=== PATIENT | female | born 1980 | race African-American/Black ===

== ENCOUNTER 2017-02-27 09:17 | Emergency (ER) | payer OTHER ==
[~2017-02-27] VITALS: Ht 170.2 cm; Wt 120.0 kg
[2017-02-27 10:14] LABS: ALBUMIN 3.8 g/dL (3.2-5.0); ALKALINE PHOSPHATASE 93 u/l (38-126); AMYLASE 54 u/l (30-110); ANION GAP 14 (6-22 (CALC)); BILIRUBIN, TOTAL 0.4 mg/dL (0.0-1.4); BUN 11 mg/dL (7-17); BUN/CREATININE RATIO 16 (12-20 (CALC)); CALCIUM 9.1 mg/dL (8.4-10.2); CARBON DIOXIDE 24 mmol/l (22-30); CHLORIDE 106 mmol/l (95-108); CREATININE 0.7 mg/dL (0.5-1.0); GFR > 60 ML/MIN (>=60 (CALC)); GFR FOR AFR.AMER. > 60 ML/MIN (>=60 (CALC)); GLUCOSE 90 mg/dL (65-105); LIPASE 61 u/l (23-300); POTASSIUM 4.3 mmol/l (3.5-5.1); SGOT/AST 21 u/l (14-36); SGPT/ALT 32 u/l (9-52); SODIUM 140 mmol/l (137-146); TOTAL PROTEIN 7.1 g/dL (6.3-8.2)
[2017-02-27 10:17] LABS: HEMATOCRIT 33.6 % (37.0-47.0); HEMOGLOBIN 10.7 g/dl (12.0-16.0); IMMATURE GRANULOCYTES 0.4 % (0.0-1.0); MEAN CELL VOLUME 83.6 fL CALC (80.0-100.0); MEAN CORPUSCULAR HGB 26.6 pG CALC (26.0-32.0); MEAN CORPUSCULAR HGB CONC 31.8 g/L CALC (32.0-36.0); NEUT# 4.52 thou/uL (2.00-7.15); RED BLOOD COUNT 4.02 mill/uL (4.20-5.60); RED CELL DISTRI WIDTH 15.9 % (11.5-15.5)
[2017-02-27 10:26] LABS: URINE BILIRUBIN - DIPSTICK NEGATIVE (NEGATIVE); URINE BLOOD DIPSTICK LARGE (NEGATIVE); URINE GLUCOSE - DIPSTICK NEGATIVE (NEGATIVE); URINE KETONE NEGATIVE (NEGATIVE); URINE LEUK ESTERASE NEGATIVE (NEGATIVE); URINE NITRITE - DIPSTICK NEGATIVE (Negative); URINE PROTEIN - DIPSTICK 30 mg/dL (NEG-TRACE); URINE UROBILINOGEN - DIPSTICK 0.2 E.U./dL (0.2)
[2017-02-27 10:27] LABS: URINE CLARITY BLOODY; URINE COLOR RED; URINE RBC TNTC RBC/hpf (0-5)
[2017-02-27] MEDS ORDERED: PRENATAL MULTI1 CAP PO (14:13)
[2017-02-27 14:28] VITALS: BP 158/84
== END 2017-02-27 14:30 | disposition home or self-care (01) | DRG 998 ==
LOC: ED 09:17
PROVIDERS: Emergency Medicine
DX: O26.899 Other specified pregnancy related conditions, unspecified trimester (principal); R10.2 Pelvic and perineal pain

== ENCOUNTER 2017-03-02 09:42 | Emergency (ER) | payer OTHER ==
[~2017-03-02] VITALS: Ht 170.2 cm; Wt 115.0 kg
[~2017-03-02 09:42] MED LIST: PRENATAL MULTI1 CAP PO
[2017-03-02 10:58] VITALS: BP 136/89
== END 2017-03-02 11:03 | disposition home or self-care (01) | DRG 998 ==
LOC: ED 09:42
DX: O26.859 Spotting complicating pregnancy, unspecified trimester (principal)
CPT/HCPCS: J2788

== ENCOUNTER 2017-03-05 06:53 | Emergency (ER) | payer OTHER ==
[~2017-03-05] VITALS: Ht 170.2 cm; Wt 120.9 kg
[2017-03-05 07:56] VITALS: BP 130/89
== END 2017-03-05 08:03 | disposition home or self-care (01) | DRG 779 ==
LOC: ED 06:53
DX: O03.9 Complete or unspecified spontaneous abortion without complication (principal)

== ENCOUNTER 2017-09-18 16:39 | Emergency (ER) | payer BC ==
[~2017-09-18] VITALS: Ht 170.2 cm; Wt 100.0 kg
[2017-09-18] MEDS ORDERED: ZPAK PO (17:09)
[2017-09-18] MEDS ORDERED: ZOFRAN4 M1 PO (17:09)
[2017-09-18 17:24] VITALS: BP 150/78
[2017-09-18] MEDS ORDERED: PROAIR HFA108 MCG/AC PO (17:30)
== END 2017-09-18 17:37 | disposition home or self-care (01) | DRG 153 ==
LOC: ED 16:39
DX: J06.9 Acute upper respiratory infection, unspecified (principal)

== ENCOUNTER 2018-01-12 18:57 | Emergency (ER) | payer SELFPAY ==
[~2018-01-12] VITALS: Ht 170.2 cm; Wt 104.5 kg
[~2018-01-12 18:57] MED LIST changes: +PROAIR HFA108 MCG/AC PO; +ZOFRAN4 M1 PO; +ZPAK PO
[2018-01-12] MEDS ORDERED: IBUPROFEN600 MG PO (21:10)
[2018-01-12 21:13] VITALS: BP 140/93
== END 2018-01-12 21:28 | disposition home or self-care (01) | DRG 552 ==
LOC: ED 18:57
DX: M54.2 Cervicalgia (principal); Y04.8XXA Assault by other bodily force, initial encounter; Y92.009 Unspecified place in unspecified non-institutional (private) residence as the place of occurrence of the external cause

== ENCOUNTER 2018-02-04 12:49 | Emergency (ER) | payer SELFPAY ==
[~2018-02-04] VITALS: Ht 170.2 cm; Wt 127.0 kg
[~2018-02-04 12:49] MED LIST changes: +IBUPROFEN600 MG PO
[2018-02-04] MEDS ORDERED: IBUPROFEN600 MG PO (13:40)
[2018-02-04 13:42] VITALS: BP 138/85
== END 2018-02-04 13:45 | disposition home or self-care (01) | DRG 605 ==
LOC: ED 12:49
PROC: 0HQDXZZ Repair Right Lower Arm Skin, External Approach (ICD-10-PCS; principal; 2018-02-04)
DX: S51.811A Laceration without foreign body of right forearm, initial encounter (principal); S61.411A Laceration without foreign body of right hand, initial encounter; S50.811A Abrasion of right forearm, initial encounter; W01.110A Fall on same level from slipping, tripping and stumbling with subsequent striking against sharp glass, initial encounter; Y93.E9 Activity, other interior property and clothing maintenance; Y92.008 Other place in unspecified non-institutional (private) residence as the place of occurrence of the external cause

== ENCOUNTER 2018-05-01 09:00 | Emergency (ER) | payer SELFPAY ==
[~2018-05-01] VITALS: Ht 170.2 cm; Wt 127.0 kg
[2018-05-01 10:09] LABS: ALBUMIN 3.7 g/dL (3.2-5.0); ALKALINE PHOSPHATASE 98 u/l (38-126); ANION GAP 13 (6-22 (CALC)); BILIRUBIN, TOTAL 0.3 mg/dL (0.0-1.4); BUN 16 mg/dL (7-17); BUN/CREATININE RATIO 24 (12-20 (CALC)); CARBON DIOXIDE 26 mmol/l (22-30); CHLORIDE 109 mmol/l (95-108); CPK 69 u/l (30-165); CREATININE 0.7 mg/dL (0.5-1.0); GFR > 60 ML/MIN (>=60 (CALC)); GFR FOR AFR.AMER. > 60 ML/MIN (>=60 (CALC)); POTASSIUM 4.3 mmol/l (3.5-5.1); SGOT/AST 28 u/l (14-36); SGPT/ALT 39 u/l (9-52); SODIUM 143 mmol/l (137-146); TOTAL PROTEIN 7.3 g/dL (6.3-8.2)
[2018-05-01 10:10] LABS: HEMATOCRIT 35.6 % (37.0-47.0); HEMOGLOBIN 11.4 g/dl (12.0-16.0); IMMATURE GRANULOCYTES 0.3 % (0.0-5.0); MEAN CELL VOLUME 87.5 fL CALC (80.0-100.0); NEUT# 4.35 thou/uL (2.00-7.15); RED BLOOD COUNT 4.07 mill/uL (4.20-5.60); RED CELL DISTRI WIDTH 15.4 % (11.5-15.5)
[2018-05-01 10:13] LABS: URINE BILIRUBIN - DIPSTICK NEGATIVE (NEGATIVE); URINE BLOOD DIPSTICK LARGE (NEGATIVE); URINE COLOR YELLOW; URINE GLUCOSE - DIPSTICK NEGATIVE (NEGATIVE); URINE KETONE NEGATIVE (NEGATIVE); URINE LEUK ESTERASE NEGATIVE (NEGATIVE); URINE NITRITE - DIPSTICK NEGATIVE (Negative); URINE PH 5.5 (4.5-8.0); URINE PROTEIN - DIPSTICK NEGATIVE (NEG-TRACE); URINE SPECIFIC GRAVITY 1.025; URINE UROBILINOGEN - DIPSTICK 0.2 E.U./dL (0.2)
[2018-05-01 10:22] LABS: MYOGLOBIN 24 ng/mL (0 - 62)
[2018-05-01 10:32] LABS: URINE CLARITY CLEAR; URINE RBC 25-50 RBC/hpf (0-5)
[2018-05-01 10:40] LABS: TSH, 3RD GENERATION 2.88 uIU/mL (0.47 - 4.68)
[2018-05-01] MEDS ORDERED: DYAZIDE1 CAP PO (10:52)
[2018-05-01 10:55] VITALS: BP 142/77
== END 2018-05-01 11:05 | disposition home or self-care (01) | DRG 305 ==
LOC: ED 09:00
PROVIDERS: Family Medicine
DX: I10 Essential (primary) hypertension (principal); R07.89 Other chest pain; M79.1 Myalgia; M25.50 Pain in unspecified joint

== ENCOUNTER 2020-05-16 19:14 | Emergency (ER) | payer OTHER ==
[~2020-05-16] VITALS: Ht 170.2 cm; Wt 100.0 kg
[~2020-05-16 19:14] MED LIST changes: +DYAZIDE1 CAP PO; +FERR SULFATE325 MG PO
[2020-05-16 20:19] LABS: HEMATOCRIT 33.1 % (37.0-47.0); HEMOGLOBIN 10.1 g/dl (12.0-16.0); IMMATURE GRANULOCYTES 0.3 % (0.0-5.0); MEAN CELL VOLUME 74.4 fL CALC (80.0-100.0); MEAN CORPUSCULAR HGB 22.7 pG CALC (26.0-32.0); MEAN CORPUSCULAR HGB CONC 30.5 g/dL CAL (32.0-36.0); NEUT# 4.99 thou/uL (2.00-7.15); RED BLOOD COUNT 4.45 mill/uL (4.20-5.60); RED CELL DISTRI WIDTH 18.6 % (11.5-15.5)
[2020-05-16 20:40] LABS: ALBUMIN 3.6 g/dL (3.2-5.0); ALKALINE PHOSPHATASE 100 u/l (38-126); ANION GAP 10 (6-22 (CALC)); BILIRUBIN, TOTAL 0.3 mg/dL (0.0-1.4); BUN 13 mg/dL (7-17); BUN/CREATININE RATIO 17 (12-20 (CALC)); CARBON DIOXIDE 25 mmol/l (22-30); CHLORIDE 107 mmol/l (95-108); CREATININE 0.8 mg/dL (0.5-1.0); ETHYL ALCOHOL 0 mg/dl (0-30); GFR > 60 ML/MIN (>=60 (CALC)); GFR FOR AFR.AMER. > 60 ML/MIN (>=60 (CALC)); SGOT/AST 20 u/l (14-36); SODIUM 139 mmol/l (137-146); TOTAL PROTEIN 6.9 g/dL (6.3-8.2)
[2020-05-16 20:51] LABS: MYOGLOBIN 15 ng/mL (0 - 62)
[2020-05-16 21:24] LABS: URINE BILIRUBIN - DIPSTICK NEGATIVE (NEGATIVE); URINE BLOOD DIPSTICK NEGATIVE (NEGATIVE); URINE COLOR YELLOW; URINE GLUCOSE - DIPSTICK NEGATIVE (NEGATIVE); URINE KETONE NEGATIVE (NEGATIVE); URINE LEUK ESTERASE NEGATIVE (NEGATIVE); URINE NITRITE - DIPSTICK NEGATIVE (Negative); URINE PROTEIN - DIPSTICK NEGATIVE (NEG-TRACE)
[2020-05-16 22:15] VITALS: BP 135/75
== END 2020-05-16 22:15 | disposition home or self-care (01) | DRG 312 ==
LOC: ED 19:14
PROVIDERS: Emergency Medicine
DX: R55 Syncope and collapse (principal); R51.9 Headache, unspecified

== ENCOUNTER 2020-09-29 21:29 | Emergency (ER) | payer BC ==
[~2020-09-29] VITALS: Ht 170.2 cm; Wt 113.0 kg
[2020-09-29 22:29] LABS: URINE BILIRUBIN - DIPSTICK NEGATIVE (NEGATIVE); URINE BLOOD DIPSTICK LARGE (NEGATIVE); URINE COLOR YELLOW; URINE GLUCOSE - DIPSTICK NEGATIVE (NEGATIVE); URINE KETONE NEGATIVE (NEGATIVE); URINE LEUK ESTERASE NEGATIVE (NEGATIVE); URINE NITRITE - DIPSTICK NEGATIVE (Negative); URINE PH 5.5 (4.5-8.0); URINE PROTEIN - DIPSTICK NEGATIVE (NEG-TRACE); URINE SPECIFIC GRAVITY >=1.030; URINE UROBILINOGEN - DIPSTICK 0.2 E.U./dL (0.2)
[2020-09-29 22:41] LABS: URINE SQUAMOUS EPITHELIAL CELL FEW EPI/hpf (0-FEW)
[2020-09-29] MEDS ORDERED: TAM75CAP PO (23:11)
[2020-09-29] MEDS ORDERED: VENTOLIN HFA IN (23:11)
[2020-09-29] MEDS ORDERED: DECADRON2 MG PO (23:11)
[2020-09-29] MEDS ORDERED: ZPAK PO (23:11)
[2020-09-29 23:20] VITALS: BP 135/76
[2020-09-30] MEDS ORDERED: TAM75CAP PO (13:05)
[2020-09-30] MEDS ORDERED: DECADRON2 MG PO (13:05)
[2020-09-30] MEDS ORDERED: ZPAK PO (13:05)
[2020-09-30] MEDS ORDERED: VENTOLIN HFA IN (13:05)
== END 2020-09-29 23:23 | disposition home or self-care (01) | DRG 179 ==
LOC: ED 21:29
DX: U07.1 COVID-19 (principal); J10.1 Influenza due to other identified influenza virus with other respiratory manifestations

== ENCOUNTER 2020-10-05 10:55 | Emergency (ER) | payer BC ==
[~2020-10-05] VITALS: Ht 170.2 cm; Wt 113.6 kg
[~2020-10-05 10:55] MED LIST changes: +DECADRON2 MG PO; +TAM75CAP PO; +VENTOLIN HFA IN
[2020-10-05 12:26] LABS: HEMATOCRIT 36.3 % (37.0-47.0); HEMOGLOBIN 11.2 g/dl (12.0-16.0); IMMATURE GRANULOCYTES 0.4 % (0.0-5.0); MEAN CORPUSCULAR HGB 25.7 pG CALC (26.0-32.0); MEAN CORPUSCULAR HGB CONC 30.9 g/dL CAL (32.0-36.0); NEUT# 3.65 thou/uL (2.00-7.15); RED BLOOD COUNT 4.35 mill/uL (4.20-5.60); RED CELL DISTRI WIDTH 15.3 % (11.5-15.5)
[2020-10-05 12:46] LABS: ALBUMIN 3.5 g/dL (3.2-5.0); ALKALINE PHOSPHATASE 74 u/l (38-126); BUN 15 mg/dL (7-17); BUN/CREATININE RATIO 25 (12-20 (CALC)); CARBON DIOXIDE 26 mmol/l (22-30); CHLORIDE 103 mmol/l (95-108); CREATININE 0.6 mg/dL (0.5-1.0); GFR > 60 ML/MIN (>=60 (CALC)); GFR FOR AFR.AMER. > 60 ML/MIN (>=60 (CALC)); SGOT/AST 27 u/l (14-36); SODIUM 138 mmol/l (137-146); TOTAL PROTEIN 6.8 g/dL (6.3-8.2)
[2020-10-05 12:49] LABS: ANION GAP 13 (6-22 (CALC)); BILIRUBIN, TOTAL 0.6 mg/dL (0.0-1.4); POTASSIUM 3.7 mmol/l (3.5-5.1)
[2020-10-05 12:50] LABS: MEAN CELL VOLUME 83.4 fL CALC (80.0-100.0)
[2020-10-05 13:02] LABS: BETA-HCG, QUANT(RESULT NUMBER) <2 mIU/mL
[2020-10-05] MEDS ORDERED: TRAMADOL HYDROC50 MG PO (13:29)
[2020-10-05 13:48] VITALS: BP 166/74
== END 2020-10-05 14:25 | disposition home or self-care (01) | DRG 761 ==
LOC: ED 10:55
PROVIDERS: Family Medicine
DX: N93.9 Abnormal uterine and vaginal bleeding, unspecified (principal)

== ENCOUNTER 2020-10-20 11:24 | Emergency (ER) | payer BC ==
[~2020-10-20] VITALS: Ht 170.2 cm; Wt 113.0 kg
[~2020-10-20 11:24] MED LIST changes: +TRAMADOL HYDROC50 MG PO
[2020-10-20] MEDS ORDERED: TAM75CAP PO (13:46)
[2020-10-20 14:28] VITALS: BP 126/76
== END 2020-10-20 14:28 | disposition home or self-care (01) | DRG 179 ==
LOC: ED 11:24
DX: U07.1 COVID-19 (principal); J10.1 Influenza due to other identified influenza virus with other respiratory manifestations

== ENCOUNTER 2020-11-24 09:21 | Emergency (ER) | payer BC ==
[2020-11-24 09:54] LABS: HEMATOCRIT 36.3 % (37.0-47.0); HEMOGLOBIN 11.3 g/dl (12.0-16.0); IMMATURE GRANULOCYTES 0.2 % (0.0-5.0); MEAN CELL VOLUME 85.2 fL CALC (80.0-100.0); MEAN CORPUSCULAR HGB 26.5 pG CALC (26.0-32.0); MEAN CORPUSCULAR HGB CONC 31.1 g/dL CAL (32.0-36.0); NEUT# 4.01 thou/uL (2.00-7.15); RED BLOOD COUNT 4.26 mill/uL (4.20-5.60); RED CELL DISTRI WIDTH 16.6 % (11.5-15.5)
[2020-11-24 10:05] LABS: ALBUMIN 4.2 g/dL (3.2-5.0); ALKALINE PHOSPHATASE 94 u/l (38-126); ANION GAP 10 (6-22 (CALC)); BILIRUBIN, TOTAL 0.6 mg/dL (0.0-1.4); BUN 14 mg/dL (7-17); BUN/CREATININE RATIO 19 (12-20 (CALC)); CARBON DIOXIDE 27 mmol/l (22-30); CHLORIDE 103 mmol/l (95-108); CREATININE 0.8 mg/dL (0.5-1.0); GFR > 60 ML/MIN (>=60 (CALC)); GFR FOR AFR.AMER. > 60 ML/MIN (>=60 (CALC)); POTASSIUM 4.2 mmol/l (3.5-5.1); SGOT/AST 27 u/l (14-36); SODIUM 137 mmol/l (137-146); TOTAL PROTEIN 8.1 g/dL (6.3-8.2)
[2020-11-24] MEDS ORDERED: ZOFRAN4 MG/TAB PO (10:46)
[2020-11-24] MEDS ORDERED: DICYCLOMINE HCL10 MG PO ×2 (10:46→12:16)
[2020-11-24 10:50] LABS: URINE BILIRUBIN - DIPSTICK NEGATIVE (NEGATIVE); URINE BLOOD DIPSTICK NEGATIVE (NEGATIVE); URINE COLOR YELLOW; URINE GLUCOSE - DIPSTICK NEGATIVE (NEGATIVE); URINE KETONE NEGATIVE (NEGATIVE); URINE LEUK ESTERASE NEGATIVE (NEGATIVE); URINE NITRITE - DIPSTICK NEGATIVE (Negative); URINE PROTEIN - DIPSTICK NEGATIVE (NEG-TRACE); URINE SPECIFIC GRAVITY 1.025; URINE UROBILINOGEN - DIPSTICK 0.2 E.U./dL (0.2)
[2020-11-24 12:35] VITALS: BP 161/64
== END 2020-11-24 12:48 | disposition home or self-care (01) | DRG 312 ==
LOC: ED 09:21
PROVIDERS: Emergency Medicine
DX: R55 Syncope and collapse (principal); E86.0 Dehydration; R11.2 Nausea with vomiting, unspecified; R19.7 Diarrhea, unspecified

== ENCOUNTER 2020-12-17 11:16 | Emergency (ER) | payer BC ==
[~2020-12-17 11:16] MED LIST changes: +DICYCLOMINE HCL10 MG PO; +ZOFRAN4 MG/TAB PO
[2020-12-17 12:46] VITALS: BP 128/77
== END 2020-12-17 12:46 | disposition home or self-care (01) | DRG 563 ==
LOC: ED 11:16
DX: S63.501A Unspecified sprain of right wrist, initial encounter (principal); W18.2XXA Fall in (into) shower or empty bathtub, initial encounter; Y93.E1 Activity, personal bathing and showering; Y92.002 Bathroom of unspecified non-institutional (private) residence as the place of occurrence of the external cause

== ENCOUNTER 2021-03-06 09:57 | Emergency (ER) | payer OTHER, BC ==
[~2021-03-06] VITALS: Ht 170.2 cm; Wt 114.0 kg
[2021-03-06 14:21] VITALS: BP 146/67
== END 2021-03-06 16:00 | disposition home or self-care (01) | DRG 999 ==
LOC: ED 09:57
DX: S00.03XA Contusion of scalp, initial encounter (principal); S06.0X9A Concussion with loss of consciousness of unspecified duration, initial encounter; S80.02XA Contusion of left knee, initial encounter; S80.01XA Contusion of right knee, initial encounter; V48.5XXA Car driver injured in noncollision transport accident in traffic accident, initial encounter

== ENCOUNTER 2022-03-22 18:22 | Observation (INO) | payer OTHER ==
[~2022-03-22] VITALS: Ht 170.2 cm; Wt 114.0 kg
[2022-03-22] VITALS (7 sets, daily range): BP systolic 153–180; BP diastolic 79–93
--- NOTE | 2022-03-22 18:24 | NUR ---
PT TO ROOM WITH STEADY GAIT
[2022-03-22 18:49] LABS: IMMATURE GRANULOCYTES 0.1 % (0.0-5.0); MEAN CORPUSCULAR HGB 23.9 pG CALC (26.0-32.0); MEAN CORPUSCULAR HGB CONC 30.3 g/dL CAL (32.0-36.0); NEUT# 7.16 thou/uL (2.00-7.15); RED BLOOD COUNT 4.19 mill/uL (4.20-5.60); RED CELL DISTRI WIDTH 19.1 % (11.5-15.5)
--- NOTE | 2022-03-22 18:50 | NUR ---
MEDICATED PATIENT. SHE COMMUNICATED THAT SHE WOULD LIKE TO DECLINE THE CHEST X RAY. NOTIFIED MD. PATIENT DECLINES FURTHER NEEDS AT THIS TIME.
[2022-03-22 18:51] LABS: MEAN CELL VOLUME 78.8 fL CALC (80.0-100.0)
--- NOTE | 2022-03-22 19:00 | NUR ---
ASSUMED CARE OF PT.
[2022-03-22 19:06] LABS: PROTHROMBIN TIME 9.9 SECONDS (9.0-12.5)
[2022-03-22 19:07] LABS: ALBUMIN 3.7 g/dL (3.2-5.0); ALKALINE PHOSPHATASE 100 u/l (38-126); ANION GAP 10 (6-22 (CALC)); BUN 16 mg/dL (7-17); BUN/CREATININE RATIO 25 (12-20 (CALC)); CARBON DIOXIDE 25 mmol/l (22-30); CHLORIDE 107 mmol/l (95-108); CREATININE 0.6 mg/dL (0.5-1.0); GFR FOR AFR.AMER. > 60 ML/MIN (>=60 (CALC)); GFR OTHER RACES > 60 ML/MIN (>=60 (CALC)); SGOT/AST 22 u/l (14-36); SODIUM 139 mmol/l (137-146); TOTAL PROTEIN 7.4 g/dL (6.3-8.2)
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
[2022-03-22 19:16] LABS: BILIRUBIN, TOTAL 0.3 mg/dL (0.0-1.4)
[2022-03-22 19:18] LABS: MYOGLOBIN 19 ng/mL (0 - 62)
--- NOTE | 2022-03-22 20:15 | NUR ---
Reassessment of patient completed. No distress noted. PT. TO BE ADMITTED FOR CHEST PAIN
--- NOTE | 2022-03-22 20:30 | NUR ---
REPORT TO BIMAL VARGAS TO ASSUME CARE.
--- NOTE | 2022-03-22 20:35 | NUR ---
JOSE RAFAEL REPORT RECEIVED IN ED ROOM FROM Fausto FISCHER RN.
--- NOTE | 2022-03-22 20:55 | NUR ---
PATIENT ASSESMENT COMPLETED AT THIS TIME. ALERT AND ORIENTED X3. NORMAL HEART SOUNDS, CLEAR LUNG SOUNDS BILATERALY. PER PATIENT REPORT LAST BOWEL MOVEMENT WAS TODAY 03/22. ACTIVE BOWEL SOUNDS THROUGHOUT. PLAN OF CARE REVIEWED WITH PATIIENT. ORIENTED TO CALL SYSTEM. CALL LIGHT AND BEDSIDE TABLE WTIHIN REACH.
--- NOTE | 2022-03-22 20:55 | NUR ---
PATIENT TRANSPORTED UP TO FLOOR BY WRITTER. WRITTER TO ASSUME PATIENT CARE.
--- NOTE | 2022-03-23 | NUR ---
PATIENT RESTING COMOFRTABLY. SISTER DRPPED OFF HEAT READER FOR PATINET. HEAT READER PROVIDED TO PATIENT. CALL LIGHT AND BEDSIDE TABLE REMAIN WITHIN REACH.
[2022-03-23 00:01] VITALS: BP 146/76
--- NOTE | 2022-03-23 03:30 | NUR ---
PRODUCTION SUPPORT ANALYST Aleida ESPINOZA IN TO DRAW PATIENT LABS AT THIS TIME.
[2022-03-23 03:36] LABS: HEMATOCRIT 29.7 % (37.0-47.0); HEMOGLOBIN 9.2 g/dl (12.0-16.0); IMMATURE GRANULOCYTES 0.1 % (0.0-5.0); MEAN CELL VOLUME 76.5 fL CALC (80.0-100.0); MEAN CORPUSCULAR HGB 23.7 pG CALC (26.0-32.0); NEUT# 5.52 thou/uL (2.00-7.15); RED BLOOD COUNT 3.88 mill/uL (4.20-5.60)
[2022-03-23 03:49] LABS: ALKALINE PHOSPHATASE 85 u/l (38-126); ANION GAP 9 (6-22 (CALC)); BILIRUBIN, TOTAL 0.2 mg/dL (0.0-1.4); BUN 11 mg/dL (7-17); BUN/CREATININE RATIO 18 (12-20 (CALC)); CARBON DIOXIDE 28 mmol/l (22-30); CHLORIDE 107 mmol/l (95-108); CREATININE 0.6 mg/dL (0.5-1.0); GFR FOR AFR.AMER. > 60 ML/MIN (>=60 (CALC)); GFR OTHER RACES > 60 ML/MIN (>=60 (CALC)); MAGNESIUM 1.9 mg/dL (1.6-2.3); SGOT/AST 15 u/l (14-36); SODIUM 141 mmol/l (137-146); TOTAL PROTEIN 6.1 g/dL (6.3-8.2)
[2022-03-23 04:08] VITALS: BP 141/76
--- NOTE | 2022-03-23 05:03 | NUR ---
PATIENT MEDICATED WITH TYLENOL FOR HEADAHCE 11/20.
--- NOTE | 2022-03-23 06:35 | NUR ---
RECEIVED REPORT FROM BIMAL HE.
[2022-03-23 06:53] VITALS: BP 133/66
--- NOTE | 2022-03-23 08:10 | NUR ---
PT SITTING ON BED: A&OX3. EVEN AND UNLABORED RESPIRATIONS; CLEAR LUNG SOUNDS UPON AUSCULTATION. TELEMETRY IN PLACE WITH LAST READING SR-70. IV SITE HEALTHY AND PATENT. ACTIVE BOWEL SOUNDS X4 QUADRANTS. NO DISTRESS NOTED. PT DENIES PAIN AT THE TIME. SAFETY PRECAUTIONS IN PLACE WITH CALL LIGHT IN REACH.
[2022-03-23 11:02] VITALS: BP 140/64
[2022-03-23] MEDS ORDERED: ASPIRIN81 MG PO (11:26)
--- NOTE | 2022-03-23 11:59 | NUR ---
PT EDUCATED ON DC INSTRUCTIONS; PT SHOWED UNDERSTANDING. IV REMOVED: #20G RIGHT AC, CATHETER INTACT UPON REMOVAL, PT TOLERATED WELL. TELEMETRY BOX REMOVED, ER NOTIFIED OF SAME.
--- NOTE | 2022-03-23 12:26 | NUR ---
PT LEFT @ 1227. PT DECIDED TO WALK. Discharge instructions given. Patient verbalizes understanding of same. Discharged in stable condition via Ambulatory to Home with staff. All belongings sent with pt.
== END 2022-03-23 12:27 | disposition home or self-care (01) | DRG 313 ==
LOC: ED 18:22 → ED-I 19:50 → ED 20:01 → MS2 20:02
PROVIDERS: Nurse Practitioner; ADMIT Internal Medicine; ATTEND Internal Medicine
DX: R07.9 Chest pain, unspecified (principal); R51.9 Headache, unspecified; Z56.6 Other physical and mental strain related to work; Z82.49 Family history of ischemic heart disease and other diseases of the circulatory system; Z20.822 Contact with and (suspected) exposure to COVID-19
CPT/HCPCS: G0378

== ENCOUNTER 2022-04-12 09:28 | Emergency (ER) | payer OTHER ==
[2022-04-12] VITALS (9 sets, daily range): BP systolic 121–158; BP diastolic 76–103
[~2022-04-12] VITALS: Ht 170.2 cm; Wt 113.0 kg
[~2022-04-12 09:28] MED LIST changes: +ASPIRIN81 MG PO
[2022-04-12] MEDS ORDERED: MOTRIN800 MG PO (11:28)
[2022-04-12] MEDS ORDERED: ATIVAN2 MG PO (11:28)
[2022-04-12] MEDS ORDERED: PREDNISONE20 MG PO (11:28)
== END 2022-04-12 11:34 | disposition home or self-care (01) | DRG 552 ==
LOC: ED 09:28
DX: M54.42 Lumbago with sciatica, left side (principal); R51.9 Headache, unspecified

== ENCOUNTER 2022-09-04 09:35 | Emergency (ER) | payer OTHER ==
[~2022-09-04] VITALS: Ht 170.2 cm; Wt 113.4 kg
[~2022-09-04 09:35] MED LIST changes: +ATIVAN2 MG PO; +MOTRIN800 MG PO; +PREDNISONE20 MG PO
[2022-09-04] MEDS ORDERED: PROVENTIL HFA IN (10:41)
[2022-09-04] MEDS ORDERED: BENZONATATE150 MG PO (10:41)
[2022-09-04] MEDS ORDERED: PREDNISONE50 MG PO (10:41)
[2022-09-04] MEDS ORDERED: DOXY-CAPS100 MG PO (10:41)
[2022-09-04 10:47] VITALS: BP 139/90
== END 2022-09-04 11:05 | disposition home or self-care (01) | DRG 153 ==
LOC: ED 09:35
DX: J06.9 Acute upper respiratory infection, unspecified (principal)